=== PATIENT | female | born 1990 | race Two or more races ===

== ENCOUNTER → 2017-04-13 | Emergency (ER) | payer OTHER ==
[~2017-04-13] VITALS: Ht 170.2 cm; Wt 88.5 kg
[~2017-04-13] MED LIST: PRENATABS FA TA1 TAB PO
== END | disposition home or self-care (01) ==
LOC: ER 10:28
DX: K52.9 Noninfective gastroenteritis and colitis, unspecified (principal)

== ENCOUNTER 2017-11-23 18:35 | Emergency (ER) | payer OTHER ==
[~2017-11-23] VITALS: Ht 170.2 cm; Wt 88.5 kg
== END 2017-11-23 20:12 | disposition home or self-care (01) ==
LOC: ER 18:35
DX: J31.2 Chronic pharyngitis (principal)

== ENCOUNTER 2021-01-12 10:49 | Outpatient (CLI) | payer OTHER | END 2021-01-12 11:54 | disposition home or self-care (01) | LOC: NST 10:49 | PROVIDERS: ATTEND Obstetrics & Gynecology | DX: Z34.83 Encounter for supervision of other normal pregnancy, third trimester (principal) ==

== ENCOUNTER 2021-01-23 11:57 | Inpatient (IN) | payer OTHER ==
[~2021-01-23] VITALS: Ht 170.2 cm; Wt 3.2 kg
[2021-02-01] MEDS ORDERED: PRENATAL TABLE1 EAC1 PO (08:51)
[2021-02-04] MEDS ORDERED: KETO10TA2 PO (11:18)
[2021-02-04] MEDS ORDERED: OXYC1TAB9 PO (11:18)
== END 2021-02-04 12:22 | disposition home or self-care (01) | DRG 788 ==
LOC: OB/GYN 02-01 11:55 → O/R 02-01 13:53 → OB/GYN 02-01 14:10
PROVIDERS: ADMIT Obstetrics & Gynecology Maternal & Fetal Medicine; ATTEND Obstetrics & Gynecology Maternal & Fetal Medicine
PROC: 4A1HXFZ Monitoring of Products of Conception, Cardiac Rhythm, External Approach (ICD-10-PCS; 2021-02-01)
PROC: 10D00Z1 Extraction of Products of Conception, Low, Open Approach (ICD-10-PCS; principal; 2021-02-01 12:00)
DX: O34.211 Maternal care for low transverse scar from previous cesarean delivery (principal); Z37.0 Single live birth; Z3A.39 39 weeks gestation of pregnancy

== ENCOUNTER 2021-01-30 10:20 | Outpatient (CLI) | payer OTHER | END 2021-01-30 11:12 | disposition home or self-care (01) | LOC: NST 10:20 | PROVIDERS: ATTEND Obstetrics & Gynecology | DX: Z34.83 Encounter for supervision of other normal pregnancy, third trimester (principal) ==

== ENCOUNTER 2022-12-17 13:20 | Emergency (ER) | payer OTHER ==
[~2022-12-17] VITALS: Ht 170.2 cm; Wt 86.2 kg
[~2022-12-17 13:20] MED LIST changes: +KETO10TA2 PO; +OXYC1TAB9 PO; +PRENATAL TABLE1 EAC1 PO
[2022-12-17 16:34] LABS: HEMOGLOBIN 14.1 g/dL (12.0-15.00); MEAN CELL VOLUME 78.1 fL (80.00-100.00); MEAN CORPUSCULAR HGB CONC 32.1 g/dl (32.0-36.0); PLATELET COUNT 266 K/uL (150-450); RED BLOOD COUNT 5.64 M/uL (4.00-6.00)
[2022-12-17 17:05] LABS: ALBUMIN 4.1 gm/dL (3.4-5.0); BILIRUBIN TOTAL 0.78 mg/dL (0.3-1.2); CALCIUM 9.3 mg/dL (8.5-10.1); CREATININE SERUM 1.09 mg/dL (0.55-1.02); GFR 57.46; GLOBULINA 4.8 G/DL (2.4-3.5); POTASSIUM 4.21 mEq/L (3.5-5.1); TOTAL PROTEIN 8.9 gm/dL (6.4-8.2)
[2022-12-17] MEDS ORDERED: ONDANSETRON ODT8 MG PO (18:30)
[2022-12-17] MEDS ORDERED: PEPCID AC20 MG PO (18:30)
== END 2022-12-17 18:44 | disposition home or self-care (01) ==
LOC: ER 13:20
PROVIDERS: General Practice
DX: R11.2 Nausea with vomiting, unspecified (principal); Z20.822 Contact with and (suspected) exposure to COVID-19